=== PATIENT | male | born 1990 | race Two or more races ===

== ENCOUNTER 2019-02-14 17:53 | Emergency (ER) | payer SELFPAY ==
[~2019-02-14] VITALS: Ht 172.7 cm; Wt 99.8 kg
[~2019-02-14 17:53] MED LIST: NORPTMEDS CO
[2019-02-14] MEDS ORDERED: DexAMETHasone SOD PHOS 10MG/1ML VIAL INJ IM ONE (20:45)
[2019-02-14] MEDS ORDERED: LORazepam 0.5 MG TAB PO ONE (20:45)
[2019-02-14] MEDS ORDERED: cefTRIAXone 1GM/50ML D5W 50 ML IV ONE ×2 (21:30→23:35)
[2019-02-14] MEDS ORDERED: SODIUM CHLORIDE 0.9% 1,000 ML IV ONE (21:30)
[2019-02-14 21:40] LABS: Amphetamine Screen, Urine NEGATIVE (NEGATIVE); Barbiturate Scree,Urine NEGATIVE (NEGATIVE); Benzodiazephine Screen, Urine NEGATIVE (NEGATIVE); Cannabinoid Screen, Urine NEGATIVE (NEGATIVE); Cocaine Screen, Urine NEGATIVE (NEGATIVE); Opiate Scree,Urine NEGATIVE (NEGATIVE); Phencyclidine Screen, Urine NEGATIVE (NEGATIVE)
[2019-02-14 22:23] LABS: Alanine Aminotransferase 56 U/L (16-61); Albumin 3.8 g/dL (3.4-5.0); Anion Gap 15 (5-15); Aspartate Aminotransferase 69 U/L (15-37); BUN/Creatinine Ratio 6.3; Blood Alcohol < 3.0 mg/dL (0-5); Blood Urea Nitrogen 7 mg/dL (7-18); Calcium 7.7 mg/dL (8.5-10.1); Carbon Dioxide 17 mmol/L (21-32); Chloride 106 mmol/L (98-107); GFR African American 100 mL/min; GFR Non-African American 82 mL/min; Glucose 93 mg/dL (74-106); Potassium 3.7 mmol/L (3.5-5.1); Sodium 138 mmol/L (136-145)
[2019-02-14 22:25] LABS: Alkaline Phosphatase 59 U/L (45-117); Bilirubin, Total 0.9 mg/dL (0.2-1.0); Total Protein 7.5 g/dL (6.4-8.2)
[2019-02-14 23:54] LABS: Basophils # (auto) 0.1 uL; Basophils % (auto) 0.7 % (0.0-2.0); Eosinophils # (auto) 0 uL; Hematocrit 45.9 % (41.0-53.0); Hemoglobin 15.9 g/dL (13.5-17.5); Lymphocytes # (auto) 0.5 uL; Lymphocytes % (auto) 4.9 % (10.0-50.0); Mean Corpuscular Hemoglobin 30.5 pg (28.0-32.0); Mean Corpuscular Hgb Conc. 34.6 g/dL (32.0-36.0); Mean Corpuscular Volume 88.3 fL (80.0-100.0); Monocytes # (auto) 0.2 uL; Monocytes % (auto) 2.1 % (0.0-12.0); Neutrophils % (auto) 92.3 % (37.0-80.0); Platelet Count (auto) 223 10^3/uL (140-450); Red Cell Distribution Width 14.2 % (11.8-14.3); White Blood Cell 9.8 10^3/uL (4.4-10.8)
[2019-02-15] MEDS ORDERED: LACTULOSE 20Gm/30ML SOLN PO ONE
[2019-02-15] MEDS ORDERED: ALUM & MAG HYDROX-SIMETH LIQ(MAALOX) 30 ML PO ONE
[2019-02-15 00:14] LABS: Lactic Acid w/Reflex 3.9 mmol/L (0.4-2.0)
[2019-02-15 00:32] VITALS: BP 140/104
[2019-02-15] MEDS ORDERED: ATENOLOL 25 MG TAB PO ONE (00:45)
== END 2019-02-15 01:21 | disposition home or self-care (01) ==
LOC: ER 17:53
DX: J06.9 Acute upper respiratory infection, unspecified (principal); K29.70 Gastritis, unspecified, without bleeding; F10.10 Alcohol abuse, uncomplicated; E72.20 Disorder of urea cycle metabolism, unspecified
CPT/HCPCS: 36415; 70490; 80053; 80307; 80320; 82140; 83605; 85025; 96365; 96366; 96372; 99284; J0696; J1100; 93005

== ENCOUNTER 2019-02-26 01:13 | Emergency (ER) | payer SELFPAY ==
[~2019-02-26] VITALS: Ht 172.7 cm; Wt 99.8 kg
[2019-02-26 02:55] LABS: Basophils # (auto) 0.1 uL; Basophils % (auto) 1.2 % (0.0-2.0); Eosinophils # (auto) 0 uL; Eosinophils % (auto) 0.3 % (0.0-7.0); Lymphocytes # (auto) 1.4 uL; Mean Corpuscular Hemoglobin 30.1 pg (28.0-32.0); Mean Corpuscular Hgb Conc. 34.6 g/dL (32.0-36.0); Mean Corpuscular Volume 87.2 fL (80.0-100.0); Monocytes # (auto) 0.9 uL; Monocytes % (auto) 9.3 % (0.0-12.0); Neutrophils # (auto) 7.4 uL; Neutrophils % (auto) 75.2 % (37.0-80.0); Nucleated Red Blood Cells % 0.3 %; Platelet Count (auto) 332 10^3/uL (140-450); Red Blood Cells 5.97 10^6/uL (4.5-5.90); Red Cell Distribution Width 14.2 % (11.8-14.3); White Blood Cell 9.8 10^3/uL (4.4-10.8)
[2019-02-26 03:04] LABS: Albumin 4.1 g/dL (3.4-5.0); BUN/Creatinine Ratio 4.6; Calcium 9.4 mg/dL (8.5-10.1); Potassium 3.9 mmol/L (3.5-5.1)
[2019-02-26 03:08] LABS: Bilirubin, Total 0.7 mg/dL (0.2-1.0); Total Protein 9.1 g/dL (6.4-8.2)
[2019-02-26 03:12] LABS: Lactic Acid w/Reflex 5.9 mmol/L (0.4-2.0)
[2019-02-26] MEDS ORDERED: SODIUM CHLORIDE 0.9% 1,000 ML IV ONE ×2 (03:45→08:18)
[2019-02-26] MEDS ORDERED: LORazepam 2MG/ML-1ML VIAL IV ONE (03:45)
[2019-02-26 04:46] LABS: Barbiturate Scree,Urine NEGATIVE (NEGATIVE); Benzodiazephine Screen, Urine NEGATIVE (NEGATIVE); Cannabinoid Screen, Urine NEGATIVE (NEGATIVE)
[2019-02-26 04:48] LABS: Amphetamine Screen, Urine NEGATIVE (NEGATIVE); Cocaine Screen, Urine NEGATIVE (NEGATIVE); Opiate Scree,Urine NEGATIVE (NEGATIVE); Phencyclidine Screen, Urine NEGATIVE (NEGATIVE)
[2019-02-26 04:53] LABS: Urine Bacteria FEW /hpf (None Seen); Urine Blood TRACE /uL (Negative); Urine Hyaline Cast MANY /lpf (0 - 2); Urine Mucus FEW (None Seen); Urine Specific Gravity 1.013 (1.001-1.035); Urine WBC 1 /hpf (0 - 3)
[2019-02-26] MEDS ORDERED: PANTOPRAZOLE 40 MG TAB PO ONE (08:30)
[2019-02-26 10:45] VITALS: BP 132/96
[2019-02-26] MEDS ORDERED: FOLIC ACID 1 MG, MULTIPLE VITAMIN 10 ML, MAGNESIUM SULF SDV 50% 8 MEQ, THIAMINE INJ 100... INJ SCH ×5 (12:00)
== END 2019-02-26 12:53 | disposition home or self-care (01) ==
LOC: ER 01:13
DX: F10.239 Alcohol dependence with withdrawal, unspecified (principal); E86.0 Dehydration; K21.9 Gastro-esophageal reflux disease without esophagitis; R94.5 Abnormal results of liver function studies
CPT/HCPCS: 36415; 80053; 80307; 80320; 80329; 81001; 83605; 83735; 85025; 87040; 96361; 96365; 96375; 99284; J2060; J3411; J3475; J7030

== ENCOUNTER 2019-03-09 03:00 | Emergency (ER) | payer MEDICAID ==
[~2019-03-09] VITALS: Ht 172.7 cm; Wt 99.8 kg
[2019-03-09 03:49] LABS: Hematocrit 46.3 % (41.0-53.0); Hemoglobin 15.9 g/dL (13.5-17.5); Mean Corpuscular Hemoglobin 30.5 pg (28.0-32.0); Mean Corpuscular Hgb Conc. 34.3 g/dL (32.0-36.0); Platelet Count (auto) 276 10^3/uL (140-450); Red Cell Distribution Width 14.7 % (11.8-14.3); White Blood Cell 5.1 10^3/uL (4.4-10.8)
[2019-03-09 03:52] LABS: Band Neutrophils % (manual) 0; Basophils % (manual) 0 (0.0-2.0); Blast Cells 0; Metamyelocytes % 0; Myelocytes % 0; Promyelocytes % 0; Reactive Lymphocytes 0
[2019-03-09] MEDS ORDERED: SODIUM CHLORIDE 0.9% 2,000 ML IV ONE (04:00)
[2019-03-09 04:04] LABS: Calcium 8.4 mg/dL (8.5-10.1); Magnesium 1.9 mg/dL (1.6-2.6); Potassium 3.6 mmol/L (3.5-5.1)
[2019-03-09 04:06] LABS: Salicylate < 1.7 mg/dL (2.8-20.0)
[2019-03-09 04:08] LABS: BUN/Creatinine Ratio 4.3; Bilirubin, Total 0.2 mg/dL (0.2-1.0); Total Protein 8.8 g/dL (6.4-8.2)
[2019-03-09 04:10] LABS: Acetaminophen < 2.0 ug/mL (10-30)
[2019-03-09 04:32] LABS: Urine WBC None Seen /hpf (0 - 3)
[2019-03-09 05:00] LABS: Amphetamine Screen, Urine NEGATIVE (NEGATIVE); Barbiturate Scree,Urine NEGATIVE (NEGATIVE); Benzodiazephine Screen, Urine POSITIVE (NEGATIVE); Cannabinoid Screen, Urine NEGATIVE (NEGATIVE); Cocaine Screen, Urine NEGATIVE (NEGATIVE); Opiate Scree,Urine NEGATIVE (NEGATIVE); Phencyclidine Screen, Urine NEGATIVE (NEGATIVE)
[2019-03-09 05:20] LABS: Urine Bacteria FEW /hpf (None Seen); Urine Blood Negative /uL (Negative); Urine Mucus FEW (None Seen); Urine Specific Gravity 1.003 (1.001-1.035)
[2019-03-09 06:45] LABS: Eosinophils % (manual) 1 (0-7); Lymphocytes % (manual) 55 (10.0-50.0); Monocytes % (manual) 4 (0-12)
[2019-03-09] MEDS ORDERED: SODIUM CHLORIDE 0.9% 1,000 ML IV ONE (07:30)
[2019-03-09] MEDS ORDERED: PANTOPRAZOLE 40 MG TAB PO ONE (11:00)
[2019-03-09] MEDS ORDERED: ONDANSETRON HCL 4 MG/2 ML VIAL IV ONE (11:15)
[2019-03-09] MEDS ORDERED: ACETAMINOPHEN 650 mg PER 20 mL UD PO ONE (11:45)
[2019-03-09] MEDS ORDERED: FOLIC ACID 1 MG, MULTIPLE VITAMIN 10 ML, MAGNESIUM SULF SDV 50% 8 MEQ, THIAMINE INJ 100... INJ SCH ×10 (12:00)
[2019-03-09 13:49] VITALS: BP 114/72
== END 2019-03-09 14:06 | disposition home or self-care (01) ==
LOC: ER 03:00
DX: F10.20 Alcohol dependence, uncomplicated (principal); F10.231 Alcohol dependence with withdrawal delirium; R42 Dizziness and giddiness; R51 Headache; F12.10 Cannabis abuse, uncomplicated
CPT/HCPCS: 36415; 80053; 80307; 80320; 80329; 81001; 83735; 85007; 85027; 93005; 96361; 96365; 96366; 96375; 99284; J2405; J3411; J3475; J7030

== ENCOUNTER 2019-05-06 17:53 | Emergency (ER) | payer MEDICAID ==
[~2019-05-06] VITALS: Ht 172.7 cm; Wt 99.8 kg
[2019-05-06 18:57] LABS: Eosinophils # (auto) 0 uL; Eosinophils % (auto) 0.7 % (0.0-7.0); Lymphocytes # (auto) 1.5 uL; Monocytes # (auto) 0.6 uL
[2019-05-06 18:59] LABS: Basophils # (auto) 0.1 uL; Basophils % (auto) 0.9 % (0.0-2.0); Hematocrit 52.4 % (41.0-53.0); Hemoglobin 17.9 g/dL (13.5-17.5); Lymphocytes % (auto) 21.1 % (10.0-50.0); Mean Corpuscular Hemoglobin 30.9 pg (28.0-32.0); Mean Corpuscular Hgb Conc. 34.2 g/dL (32.0-36.0); Mean Corpuscular Volume 90.5 fL (80.0-100.0); Monocytes % (auto) 8.4 % (0.0-12.0); Neutrophils % (auto) 68.9 % (37.0-80.0); Nucleated Red Blood Cells % 0.2 %; Platelet Count (auto) 292 10^3/uL (140-450); Red Blood Cells 5.79 10^6/uL (4.5-5.90); Red Cell Distribution Width 14.8 % (11.8-14.3); White Blood Cell 7.3 10^3/uL (4.4-10.8)
[2019-05-06 19:14] LABS: Albumin 4.3 g/dL (3.4-5.0); Calcium 8.8 mg/dL (8.5-10.1); Potassium 3.6 mmol/L (3.5-5.1)
[2019-05-06] MEDS ORDERED: LORazepam 2MG/ML-1ML VIAL IV ONE (19:15)
[2019-05-06] MEDS ORDERED: SODIUM CHLORIDE 0.9% 1,000 ML IV ONE (19:15)
[2019-05-06] MEDS ORDERED: THIAMINE INJ 100 MG in SODIUM CHLORIDE 0.9% 1,000 ML IV ONE (19:15)
[2019-05-06 19:17] LABS: BUN/Creatinine Ratio 5.3
[2019-05-06 19:19] LABS: Bilirubin, Total 0.6 mg/dL (0.2-1.0); Total Protein 9.1 g/dL (6.4-8.2)
[2019-05-06] MEDS ORDERED: THIAMINE 100mg/ml INJ (200mg/2ml VIAL) ONE (23:16)
[2019-05-07] VITALS: BP 125/94
[2019-05-07] MEDS: LORazepam 0.5 MG TAB PO ONE ×2 (01:00→01:57)
== END 2019-05-07 01:30 | disposition home or self-care (01) ==
LOC: ER 17:53
DX: F10.239 Alcohol dependence with withdrawal, unspecified (principal); K70.30 Alcoholic cirrhosis of liver without ascites; K21.9 Gastro-esophageal reflux disease without esophagitis; Y90.9 Presence of alcohol in blood, level not specified
CPT/HCPCS: 36415; 80053; 80320; 85025; 93005; 96365; 96375; 99284; J2060; J3411; J7030

== ENCOUNTER 2023-03-13 23:45 | Emergency (ER) | payer SELFPAY ==
[~2023-03-13] VITALS: Ht 172.7 cm; Wt 85.8 kg
[2023-03-14 00:07] LABS: Basophils # (auto) 0.1 10 ^3/uL (0-0.2); Basophils % (auto) 1.1 % (0.0-2.0); Eosinophils # (auto) 0 10 ^3/uL (0-0.8); Eosinophils % (auto) 0.5 % (0.0-7.0); Hematocrit 47.5 % (41.0-53.0); Hemoglobin 15.7 g/dL (13.5-17.5); Lymphocytes # (auto) 2.9 10 ^3/uL (0.4-5.4); Lymphocytes % (auto) 41.3 % (10.0-50.0); Mean Corpuscular Hemoglobin 28.3 pg (28.0-32.0); Mean Corpuscular Hgb Conc. 33.1 g/dL (32.0-36.0); Mean Corpuscular Volume 85.5 fL (80.0-100.0); Monocytes # (auto) 0.6 10 ^3/uL (0-1.3); Monocytes % (auto) 7.9 % (0.0-12.0); Neutrophils # (auto) 3.5 10 ^3/uL (1.6-8.6); Neutrophils % (auto) 49.2 % (37.0-80.0); Red Blood Cells 5.55 10^6/uL (4.5-5.90); Red Cell Distribution Width 14.8 % (11.8-14.3); White Blood Cell 7.1 10^3/uL (4.4-10.8)
[2023-03-14 00:21] LABS: INR 1.03 (0.9-1.15); Partial Thromboplastin Time 28.1 SEC (24.5-34.5); Prothrombin Time 10.8 sec (9.3-11.8)
[2023-03-14 00:24] LABS: Alanine Aminotransferase 35 U/L (7-40); Albumin 5.4 g/dL (3.2-4.8); Alkaline Phosphatase 59 U/L (46-116); Anion Gap 16 (5-15); Aspartate Aminotransferase 35 U/L (13-40); Calcium 9.2 mg/dL (8.7-10.4); Carbon Dioxide 24 mmol/L (20-30); Chloride 95 mmol/L (98-107); Glucose 105 mg/dL (74-106); Magnesium 1.9 mg/dL (1.6-2.6); Potassium 3.5 mmol/L (3.5-5.1); Sodium 135 mmol/L (136-145)
[2023-03-14 00:25] LABS: BUN/Creatinine Ratio 6.7 (10.0-20.0); Bilirubin, Total 0.6 mg/dL (0.2-1.0); Blood Urea Nitrogen < 5 mg/dL (9-23); Total Protein 8.5 g/dL (5.7-8.2)
[2023-03-14] MEDS ORDERED: LORazepam 2MG/ML-1ML VIAL IM ONE (01:45)
[2023-03-14] MEDS ORDERED: ONDANSETRON ODT 4 MG TAB PO ONE (01:45)
[2023-03-14] MEDS ORDERED: LACTATED RINGER'S 2,000 ML IV ONE (02:15)
[2023-03-14 02:19] VITALS: TEMP 98
[2023-03-14 03:17] VITALS: PULSE 124; RESP 16; O2SAT 99
[2023-03-14] MEDS ORDERED: MIDAZOLAM HCL 5 MG/ML-1ML VIAL IV ONE (03:30)
[2023-03-14 05:32] VITALS: BP 118/84; PULSE 119; RESP 18; O2SAT 98
[2023-03-14 05:41] LABS: Urine Bacteria NONE SEEN /hpf (None Seen); Urine Blood 1+ /uL (Negative); Urine Clarity Clear (Clear); Urine Color Yellow (Yellow); Urine Protein, UAD 2+ (Negative); Urine Specific Gravity 1.015 (1.001-1.035); Urine Urobilinogen Normal (Negative); Urine WBC 1 /hpf (0 - 3)
[2023-03-14] MEDS ORDERED: CHLO5CAP3 PO (05:56)
[2023-03-14] MEDS ORDERED: HYDR-4924 PO (05:58)
== END 2023-03-14 05:34 | disposition home or self-care (01) ==
LOC: ER 23:45
DX: F10.230 Alcohol dependence with withdrawal, uncomplicated (principal); R07.89 Other chest pain; F12.10 Cannabis abuse, uncomplicated
CPT/HCPCS: 36415; 71045; 80053; 81001; 83735; 83880; 84484; 85025; 85610; 85730; 93005; 96361; 96372; 96374; 99285; J2060; J2250; Q0162

== ENCOUNTER 2024-08-07 17:45 | Emergency (ER) | payer MEDICAID ==
[~2024-08-07] VITALS: Ht 172.7 cm; Wt 89.8 kg
[~2024-08-07 17:45] MED LIST changes: +HYDR-4924 PO
--- NOTE | 2024-08-07 18:23 | DVH ---
BILATERALRIBS RADIOGRAPHS CLINICAL HISTORY: Left-sided trauma Chest pain. TECHNIQUE: AP and oblique views of the right and left ribs were obtained. Comparison: None FINDINGS: There is suggestion of the left 9th rib fracture and a posterolateral. The right rib series appears n ormal.. The lungs are clear. There is no evidence of a pneumothorax. The surrounding soft tissues jose martin ear within normal limits. IMPRESSION: 1. Suspicion for left 9th rib fracture in the posterolateral aspect. 2. Right rib series demonstrates no fracture identified.
[2024-08-07] MEDS ORDERED: IBUP-1455 PO (19:47)
[2024-08-07] MEDS ORDERED: HYDR-4902 PO (19:47)
[2024-08-07] MEDS ORDERED: BACIOIN15 TOP (19:47)
--- NOTE | 2024-08-07 19:47 | ED.PDOC ---
[place]. trauma (HPI) HPI Comments Patient is a pleasant but obese 33-year-old male who arrives the ED today for evaluation of left-sided rib pain and left-sided eyebrow injury concerns. Patient had a category ground level fall two days ago striking his ribs and the left side of the his face above his left eye. Patient arrives with a nonbleeding laceration to the left lid and contusions of the left-sided ribs. Patient denies any fever nausea or vomiting. Patient denies any LOC. Vital signs were stable on arrival. Chief Complaint: Fall Injury Time Seen by MD: 17:48 Primary Care Provider: NOT KNOWN Reviewed notes: Nurses Notes Allergies: Coded Allergies: NO KNOWN ALLERGIES (Unverified , 12/19/12) Home Meds Active Scripts Hydroxyzine HCl (Hydroxyzine Hydrochloride) 25 Mg Tab, 25 MG PO BID PRN for 5 Days, #10 TAB Prov:FLORES MONDRAGON DO 03/14/23 Reported Medications No Reported Medication (NO REPORTED MEDICATION) Ea, 0 CO UNK PATIENT HAS NO REPORTED MEDICATIONS 01/11/13 Information Source: Patient Mode of Arrival: Ambulatory Severity: Moderate Timing: Days Duration: Since onset Prehospital treatment: None Location: Chest, Face Location of laceration: Other (Lateral left eyelid) Mechanism: Blunt trauma, Fall Past Medical History PAST MEDICAL HISTORY: GERD, Liver Surgical History: Denies all surgeries Family History Family History: Reviewed,noncontributory to illness Social History Smoker: Non-Smoker Alcohol: Heavy Drugs: Denies Drug Use, Marijuana Lives In: Home Constitutional: denies: chills, diaphoresis, fatigue, fever, malaise, sweats, weakness, others EENTM: denies: blurred vision, double vision, ear bleeding, ear discharge, ear drainage, ear pain, ear ringing, eye pain, eye redness, hearing loss, mouth pain, mouth swelling, nasal discharge, nose bleeding, nose congestion, nose pain, photophobia, tearing, throat pain, throat swelling, voice changes, others Respiratory: denies: cough, hemoptysis, orthopnea, SOB at rest, shortness of breath, SOB with excertion, stridor, wheezing, others Cardiovascular: denies: chest pain, dizzy spells, diaphoresis, Dyspnea on exertion, edema, irregular heart beat, left arm pain, lightheadedness, palpitations, PND, syncope, others Gastrointestinal: denies: abdomen distended, abdominal pain, blood streaked bowels, constipated, diarrhea, dysphagia, difficulty swallowing, hematemesis, melena, nausea, poor appetite, poor fluid intake, rectal bleeding, rectal pain, vomiting, others Genitourinary: denies: burning, dysuria, flank pain, frequency, hematuria, incontinence, penile discharge, penile sore, pain, testicle pain, testicle swelling, urgency, others Musculoskeletal: reports: others ( left-sided rib pain); denies: back pain, gout, joint pain, joint swelling, muscle pain, muscle stiffness, neck pain Integumetry: reports: laceration ( lateral left eyelid); denies: bruises, change in color, change in hair/nails, dryness, lesions, lumps, rash, wounds, others Allergic/Immunocompromised: denies: Difficulty Healing, Frequent Infections, Hives, Itching, others Hematologic/Lymphatic: denies: anemia, blood clots, easy bleeding, easy bruisin g, swollen glands, others Endocrine: denies: excessive hunger, excessive sweating, excessive thirst, excessive urination, flushing, intolerance to cold, intolerance to heat, unexplained weight gain, unexplained weight loss, others Psychiatric: denies: anxiety, bipolar disorder, depression, hopeless, panic disorder, schizophrenia, sleepless, suicidal, others Physical Exam General Appearance: Moderate Distress ( moderate distress due to rib pain concerns.), Normal HEENT: Normal ENT Inspection, Pharynx Normal, TMs Normal Neck: Full Range of Motion, Non-Tender, Normal, Normal Inspection Respiratory: Lungs Clear, No Accessory Muscle Use, No Respiratory Distress, Normal Breath Sounds, Other ( Patient displays some resolving ecchymosis to the left-sided ribs between ribs eight and 10. Tenderness to palpation throughout. Unable to appreciate any crepitus.) Cardiovascular: No Edema, No JVD, No Murmur, No Gallop, Normal Peripheral Pulses, Regular Rate/Rhythm Breast Exam: Deferred Gastrointestinal: No Organomegaly, Non Tender, No Pulsatile Mass, Normal Bowel Sounds, Soft Genitalia: Deferred Pelvic: Deferred Rectal: Deferred Extremities: No calf tenderness, Normal capillary refill, Normal inspection, Normal range of motion, Non-tender, No pedal edema Neurologic: Alert, hand blocker II-XII nml as Tested, No Motor Deficits, Normal Affect, Normal Mood, No Sensory Deficits Cerebellar Function: Normal Reflexes: Normal Skin: Lacerations ( Patient displays a 2 cm horizontal laceration to the lateral aspec of the left eyelid. Scabbing noted. No gaping. No edema or ecchymosis appreciated.) Lymphatic: No Adenopathy Was a procedure done? Was a procedure done?: No Differential Diagnosis Multiple Trauma: Closed Head Injury, Other ( Rib fracture, rib contusion, facial laceration) X-Ray, Labs, Meds, VS Vital Signs Date Time Temp Pulse Resp B/P (MAP) Pulse Ox O2 Delivery O2 Flow Rate FiO2 08/07/24 17:49 98.2 103 16 146/105 (119) 94 98.2 X-Ray, Labs, Meds, VS Comment All studies performed the ED were evaluated by me personally. Rib series revealed a fracture of the 9th rib in the left side. For head CT was not requi red as the patient failed to meet minimum head trauma scores to qualify that test. Advised patient utilize topical antibiotics on his eyelid wound and pain medication as needed. Time of 1ST Reevaluation: 19:45 Reevaluation 1ST: Improved Consultation: PCP Patient Education/Counseling: Diagnosis, Treatment Family Education/Counseling: Diagnosis, Treatment Departure 1 Departure Time of Disposition: 19:45 Impression: Primary Impression: Eyelid laceration Additional Impression: Rib fracture Disposition: HOME / SELF CARE / HOMELESS Condition: Stable Additional Instructions: Advised topical antibiotics for his eyelid laceration and pain medication as needed. e-Prescriptions Hydrocodone-Acetaminophen (Hydrocodone Bitartrate/AC 5-325 mg) 1 Tab Tab 1 TAB PO Q6HP PRN, #20 TAB Prov: ROSA SCHAFER PAC 08/07/24 Ibuprofen Micronized (Ibuprofen) 800 Mg Tab 800 MG PO Q8HP PRN, #20 TAB Prov: ROSA SCHAFER PAC 08/07/24 Bacitracin Base (Bacitracin) 500 Unit/Gm Oin 500 UNIT TOP BID, #30 GM Prov: ROSA SCHAFER PAC 08/07/24 Discharged With: Self, Friend Critical Care Note Critical Care Time?: No Stability Stability form required: No Heart Score Heart Score: Heart Score Response (Comments) Value History N/A 0 EKG N/A 0 Age N/A 0 Risk Factors N/A 0 Troponin N/A 0 Total 0 ROSA SCHAFER PAC August 07, 2024 19:47
[2024-08-07] MEDS: HYDROcodone-ACET 5/325MG TAB PO ONE (20:11)
[2024-08-07] MEDS: KETOROLAC TROMETH 60MG/2ML VIAL IM ONE (20:13)
[2024-08-07 20:18] VITALS: BP 146/80; PULSE 83; RESP 18; TEMP 98.6; O2SAT 95
== END 2024-08-07 20:45 | disposition home or self-care (01) ==
LOC: ER 17:47
DX: S22.32XA Fracture of one rib, left side, initial encounter for closed fracture (principal); S01.112A Laceration without foreign body of left eyelid and periocular area, initial encounter; K21.9 Gastro-esophageal reflux disease without esophagitis; F10.90 Alcohol use, unspecified, uncomplicated; E66.9 Obesity, unspecified; Z68.30 Body mass index [BMI] 30.0-30.9, adult; W18.39XA Other fall on same level, initial encounter; Y93.89 Activity, other specified; Y92.89 Other specified places as the place of occurrence of the external cause; Y99.8 Other external cause status; Y90.9 Presence of alcohol in blood, level not specified
CPT/HCPCS: 71111; 96372; 99283; J1885; 12011